=== PATIENT | male | born 1960 | race African-American/Black ===

== ENCOUNTER 2018-01-16 16:41 | Emergency (ER) | payer OTHER ==
[~2018-01-16] VITALS: Ht 190.5 cm; Wt 136.5 kg
[2018-01-16] MEDS ORDERED: LOPRESSOR100 M1 PO (17:02)
[2018-01-16] MEDS ORDERED: FLOMAX0.4 MG PO (17:03)
[2018-01-16] MEDS ORDERED: NEURONTIN 300300 M1 PO (17:03)
[2018-01-16] MEDS ORDERED: LIORESAL 10 MG10 MG PO (17:03)
[2018-01-16] MEDS ORDERED: HYDROCHLOROTH12.5 M1 PO (17:03)
[2018-01-16] MEDS ORDERED: NORVASC10 MG PO (17:03)
[2018-01-16] MEDS ORDERED: CYCLOBENZAPRINE5 MG PO (18:24)
[2018-01-16 18:39] VITALS: BP 147/97
== END 2018-01-16 18:40 | disposition home or self-care (01) ==
LOC: M.ERS 16:41
DX: M54.2 Cervicalgia (principal); M25.512 Pain in left shoulder; R25.2 Cramp and spasm; G89.29 Other chronic pain; M25.569 Pain in unspecified knee; I10 Essential (primary) hypertension; Z91.012 Allergy to eggs; V87.7XXA Person injured in collision between other specified motor vehicles (traffic), initial encounter; Y93.89 Activity, other specified; Y92.89 Other specified places as the place of occurrence of the external cause; Y99.8 Other external cause status

== ENCOUNTER 2018-11-19 09:26 | Emergency (ER) | payer OTHER ==
[~2018-11-19] VITALS: Ht 188 cm; Wt 126.1 kg
[~2018-11-19 09:26] MED LIST: CYCLOBENZAPRINE5 MG PO; FLOMAX0.4 MG PO; HYDROCHLOROTH12.5 M1 PO; LIORESAL 10 MG10 MG PO; LOPRESSOR100 M1 PO; NEURONTIN 300300 M1 PO; NORVASC10 MG PO
[2018-11-19] MEDS ORDERED: LISINOPRIL20 MG PO (09:44)
[2018-11-19] MEDS ORDERED: HYDROCODONE-AP1 EAC6 PO (11:07)
[2018-11-19] MEDS ORDERED: FLEXERIL PO (11:07)
[2018-11-19 11:45] VITALS: BP 149/95
== END 2018-11-19 11:45 | disposition home or self-care (01) ==
LOC: M.ERS 09:26
DX: S16.1XXA Strain of muscle, fascia and tendon at neck level, initial encounter (principal); M25.512 Pain in left shoulder; R07.81 Pleurodynia; F17.210 Nicotine dependence, cigarettes, uncomplicated; I10 Essential (primary) hypertension; M25.569 Pain in unspecified knee; G89.29 Other chronic pain; G47.30 Sleep apnea, unspecified; J44.9 Chronic obstructive pulmonary disease, unspecified; N40.0 Benign prostatic hyperplasia without lower urinary tract symptoms; Z91.012 Allergy to eggs; Z88.7 Allergy status to serum and vaccine; V89.2XXA Person injured in unspecified motor-vehicle accident, traffic, initial encounter; Y92.89 Other specified places as the place of occurrence of the external cause; Y93.89 Activity, other specified; Y99.8 Other external cause status